=== PATIENT | male | born 1960 | race Caucasian/White ===

== ENCOUNTER 2019-10-01 08:12 | Day surgery (SDC) | payer OTHER ==
[2019-09-25 14:46] VITALS: BMI 20.7
[2019-10-01] MEDS ORDERED: LIDOCAINE HCL/PF 2% SDV 5ML VIAL ONE (08:25)
[2019-10-01] MEDS ORDERED: PROPOFOL 20 ML ONE ×2 (08:25)
[2019-10-01 11:56] VITALS: TEMP 98
[2019-10-01 12:04] VITALS: BP 124/54; PULSE 52
--- NOTE | 2019-10-03 16:59 | PATH ---
Surgical Pathology Report Patient Name: REMEDIOS ANTOINE [facility]. Rec. #: [id number] /Age/Gender: 1960 (Age: 59) / M Account: [id number] Location: [facility] Taken: 10/01/2019 Received: 10/01/2019 Reported: 10/03/2019 Physicians: Gómez Jones M.D. Specimen(s) Received POLYP ILEOCECAL VALVE Clinical History Screening Postoperative diagnosis: Diverticulosis, colon polyp Final Diagnosis ILEOCECAL VALVE POLYP, BIOPSY: POLYPOID COLONIC MUCOSA WITH SURFACE HYPERPLASTIC CHANGE. Electronically Signed Debbie Goncalves M.D. Gross Description Received in formalin, labeled "biopsy polyp ileocecal valve" is a hernandez, irregular portion of soft tissue measuring 0.2 cm. in greatest dimension. The specimen is submitted in toto in one cassette. 10/02/2019 [facility]10/02/2019
== END 2019-10-01 09:50 | disposition home or self-care (01) ==
LOC: FASU-ENDO 08:12
PROVIDERS: ATTEND Internal Medicine Gastroenterology
PROC: 0DBC8ZX Excision of Ileocecal Valve, Via Natural or Artificial Opening Endoscopic, Diagnostic (ICD-10-PCS; principal; 2019-10-01 08:37)
DX: Z12.11 Encounter for screening for malignant neoplasm of colon (principal); D12.0 Benign neoplasm of cecum; K57.30 Diverticulosis of large intestine without perforation or abscess without bleeding
CPT/HCPCS: 88305-TC